=== PATIENT | female | born 1980 | race Hispanic/Latino ===

== ENCOUNTER 2019-01-13 23:34 | Emergency (ER) | payer BC ==
[2019-01-13] MEDS ORDERED: CHLORHEXIDINE GLUCONATE 4 % 15 ML UD TOP ONE (23:44)
[2019-01-14] MEDS ORDERED: ACETAMINOPHEN-CAFF-BUTALBITAL 1 EA TAB PO ONE (00:02)
--- NOTE | 2019-01-14 00:02 | ED.PDOC ---
History of Present Illness - General Chief Complaint: Lower Extremity Injury Stated Complaint: Left great toe injury Time Seen by Provider: 01/13/19 23:59 Source: patient Exam Limitations: no limitations - History of Present Illness Initial Comments: The patient is a [id number] female presenting to the emergency room secondary to having pulled a dresser over the first toe of her left foot causing the nail to retract. No evidence of other deformity. No other injury. Estimated blood loss was 5 cc. This occurred approximately 10 minutes prior to arrival. Severity: mild Improving Factors: nothing Worsening Factors: nothing Associated Symptoms: denies symptoms Allergies/Adverse Reactions: Allergies NO KNOWN ALLERGY Allergy (Verified 01/14/19 00:00) Home Medications: Ambulatory Orders Multiple Vitamin [Multi-Vitamin] 1 tab PO DAILY 05/16/14 Review of Systems - Review of Systems Constitutional: States: no symptoms reported EENTM: States: no symptoms reported Respiratory: States: no symptoms reported Cardiology: States: no symptoms reported Gastrointestinal/Abdominal: States: no symptoms reported Genitourinary: States: no symptoms reported Musculoskeletal: States: no symptoms reported Skin: States: see HPI Neurological: States: no symptoms reported Endocrine: States: no symptoms reported All other Systems: No Change from Baseline Past Medical History (General) - Patient Medical History Hx Seizures: No Hx Stroke: No Hx Dementia: No Hx Asthma: No Hx of COPD: No Hx Cardiac Disorders: No Hx Congestive Heart Failure: No Hx Pacemaker: No Hx Hypertension: No Hx Thyroid Disease: No Hx Diabetes: No Hx Gastroesophageal Reflux: No Hx Renal Disease: No Hx Cancer: No Hx of HIV: No Hx Hepatitis C: No Hx MRSA: No - Vaccination History Hx Tetanus, Diphtheria Vaccination: No Hx Influenza Vaccination: No Hx Pneumococcal Vaccination: No - Social History Hx Tobacco Use: No Hx Chewing Tobacco Use: No Hx Alcohol Use: No Hx Substance Use: No Hx Substance Use Treatment: No Hx Depression: No Hx Physical Abuse: No Hx Emotional Abuse: No Hx Suspected Abuse: No - Female History Hx Last Menstrual Period: 07/24/13 Patient : Yes Expected Date of Delivery:: 04/30/14 Family Medical History - Family History Maternal Living Status: Still Living Hx Family Diabetes: Yes Paternal Living Status: Still Living Hx Family Diabetes: Yes Physical Exam - Physical Exam General Appearance: Alert, No apparent distress Eye Exam: bilateral normal Ears, Nose, Throat: hearing grossly normal Neck: full range of motion Respiratory: no respiratory distress, no accessory muscle use Cardiovascular/Chest: normal peripheral pulses, no edema Peripheral Pulses: dorsalis pedis,right: 2+, dorsalis pedis,left: 2+ Rectal Exam: deferred Extremity: normal range of motion, no pedal edema, no calf tenderness, normal capillary refill 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 It is incompletely avulsed. the foot is clean and the nail is removed. It is hemostatic. She can dress it daily with a Band-Aid and Neosporin. The nail may or may not grow back. Monitor for any evidence of infection. No evidence of deformity and no evidence of any neurovascular compromise at this time. Follow-up with primary care doctor as needed. ER warnings were given. Departure - Departure Clinical Impression: Avulsed toenail Qualifiers: Encounter type: initial encounter Qualified Code(s): S91.209A - Unspecified open wound of unspecified toe(s) with damage to nail, initial encounter Disposition: Discharge to Home or Self Care Condition: Good Departure Forms: ED Discharge - Pt. Copy, Patient Portal Self Enrollment Diet: regular diet Activity: increase activity as tolerated Referrals: Yuval Mann MD [Primary Care Provider] - 1-2 Weeks Home Medications: Ambulatory Orders Multiple Vitamin [Multi-Vitamin] 1 tab PO DAILY 05/16/14 Additional Instructions: the patient is a 38-year-old female presenting secondary to a left first toenail evulsion. It is incompletely avulsed. the foot is clean and the nail is removed. It is hemostatic. She can dress it daily with a Band-Aid and Neosporin. The nail may or may not grow back. Monitor for any evidence of infection. No evidence of deformity and no evidence of any neurovascular compromise at this time. Follow-up with primary care doctor as needed. ER warnings were given.
[2019-01-14 00:05] VITALS: BP 164/84; TEMP 98.3; O2SAT 99
[2019-01-14] MEDS ORDERED: NEOMYCIN-BACITRACIN-POLYMYXIN 0.9 GM UD TOP ONE (00:06)
== END 2019-01-14 00:22 | disposition home or self-care (01) ==
LOC: ER 23:34
DX: S91.209A Unspecified open wound of unspecified toe(s) with damage to nail, initial encounter (principal); W22.8XXA Striking against or struck by other objects, initial encounter; Y92.009 Unspecified place in unspecified non-institutional (private) residence as the place of occurrence of the external cause